=== PATIENT | male | born 1955 | race Caucasian/White ===

== ENCOUNTER 2017-01-20 09:46 | Day surgery (SDC) | payer OTHER ==
[~2017-01-20] VITALS: Ht 177.8 cm; Wt 95.3 kg
[~2017-01-20 09:46] MED LIST: BACTRIM,SEPT1 TABLET PO; KEFLEX500 MG PO; ULTRAM50 MG PO
[2017-01-20 10:21] VITALS: BP 97/63
[2017-01-20] MEDS ORDERED: NORCO 5/3251 TABLET PO (14:51)
[2017-01-20 15:12] VITALS: BP 120/80
[2017-01-20 16:00] VITALS: BP 106/65
[2017-01-20 16:54] VITALS: BP 115/60
[2017-01-20 18:05] VITALS: BP 112/63
[2017-01-20 21:30] VITALS: BP 110/66
== END 2017-01-20 21:38 | disposition home or self-care (01) ==
LOC: SDC 09:46 → 2SOUTH 14:10 → SDC 14:46 → 2SOUTH 21:38
DX: K80.10 Calculus of gallbladder with chronic cholecystitis without obstruction (principal); K66.0 Peritoneal adhesions (postprocedural) (postinfection); K21.9 Gastro-esophageal reflux disease without esophagitis; J44.9 Chronic obstructive pulmonary disease, unspecified; M19.90 Unspecified osteoarthritis, unspecified site; E66.9 Obesity, unspecified; Z68.30 Body mass index [BMI] 30.0-30.9, adult; F17.200 Nicotine dependence, unspecified, uncomplicated; Z80.0 Family history of malignant neoplasm of digestive organs; Z83.3 Family history of diabetes mellitus; Z88.5 Allergy status to narcotic agent
CPT/HCPCS: 74300; 88304; C1769; G0378; J1100; J1885; J2405; J3010; S0020

== ENCOUNTER → 2017-11-16 | Outpatient (CLI) | payer OTHER ==
[~2017-11-16] MED LIST changes: +CELEXA10 MG PO; +NORCO 5/3251 TABLET PO
== END | disposition home or self-care (01) ==
LOC: EDSTATUS 09:00 → OPR 09:00 → RAD 09:55 → OPR 09:55
PROC: 0JB83ZX Excision of Abdomen Subcutaneous Tissue and Fascia, Percutaneous Approach, Diagnostic (ICD-10-PCS; principal; 2017-11-16)
DX: E85.9 Amyloidosis, unspecified (principal)
CPT/HCPCS: 76942; 88305

== ENCOUNTER 2018-01-18 10:03 | Day surgery (SDC) | payer OTHER ==
[~2018-01-18] VITALS: Ht 177.8 cm; Wt 83.9 kg
[~2018-01-18 10:03] MED LIST changes: +ATIVAN0.5 MG PO; +CYCLOPHOSPHAMID50 M2 PO; +CYTOXAN PO; +DECADRON4 M1 PO; +DOXYCYCLINE HY100 MG PO; +ROXICODONE5 MG PO; +VITAMIN B-121000 MC3 PO; +VITAMIN B-121000 MC4 SL; +ZOVIRAX400 MG PO
[2018-01-18 10:37] LABS: INTER. NORMALIZED RATIO 0.9
[2018-01-18 10:50] VITALS: BP 98/56
[2018-01-18 11:07] LABS: PTT 18.2 SEC (25-37)
[2018-01-18 14:49] VITALS: BP 125/70
[2018-01-18 15:42] VITALS: BP 120/57
== END 2018-01-18 15:47 | disposition home or self-care (01) ==
LOC: SDC 10:03
PROVIDERS: Thoracic Surgery (Cardiothoracic Vascular Surgery)
DX: D76.3 Other histiocytosis syndromes (principal); E85.9 Amyloidosis, unspecified; K21.9 Gastro-esophageal reflux disease without esophagitis; Z87.891 Personal history of nicotine dependence; Z87.820 Personal history of traumatic brain injury
CPT/HCPCS: 85610; 85730; 88305; J0330; J0690; J1100; J2405; J2710; J3010; J7643

== ENCOUNTER 2018-04-15 03:57 | Emergency (ER) | payer OTHER ==
[~2018-04-15] VITALS: Ht 170.2 cm; Wt 83.6 kg
[~2018-04-15 03:57] MED LIST changes: +ZOMETA 4 M4 MG/100 M IV
[2018-04-15 04:44] LABS: BASOPHIL (%) 0.5 % (0-1); EOSINOPHIL (%) 0.8 % (0-5); EOSINOPHIL COUNT 0.1 K/uL (0-0.3); HEMATOCRIT 35.8 % (38.0-50.0); HEMOGLOBIN 11.8 G/DL (12.5-16.6); IMMATURE GRANULOCYTE (%) 0.4 % (0.0-0.7); LYMPHOCYTE (%) 13.3 % (15-42); LYMPHOCYTE COUNT 1.1 K/uL (1.0-2.8); MCH 30.9 PG (29.0-34.0); MCV 93.7 FL (86-99); MONOCYTE (%) 10.9 % (3-12); MONOCYTE COUNT 0.9 K/uL (0-0.8); NEUTROPHIL (%) 74.1 % (45-76); NEUTROPHIL COUNT 5.9 K/uL (1.8-6.4); PLATELET COUNT 181 K/uL (156-360); RBC DIS.WIDTH-CV 14.3 % (11.8-14.6); RBC DIS.WIDTH-SD 49.2 % (39-53); RED BLOOD COUNT 3.82 M/uL (4.00-5.50); WHITE BLOOD COUNT 7.9 K/uL (4.1-10.2)
[2018-04-15 04:57] LABS: CHLORIDE 102 mEq/L (99-109); POTASSIUM 4.4 mEq/L (3.7-5.4); SODIUM 138 mEq/L (136-147)
[2018-04-15 04:58] LABS: GLUCOSE 103 mg/dL (70-99)
[2018-04-15 05:02] LABS: CREATININE 0.7 mg/dL (0.6-1.3); GFR ESTIMATE (CALCULATED) > 59 mL/min/ (58.99-99999)
[2018-04-15 05:03] LABS: UREA NITROGEN (BUN) 19 mg/dL (9-23)
[2018-04-15 06:45] VITALS: BP 131/70
== END 2018-04-15 06:52 | disposition home or self-care (01) ==
LOC: EME 03:57
PROVIDERS: Emergency Medicine
DX: S63.287A Dislocation of proximal interphalangeal joint of left little finger, initial encounter (principal); S41.112A Laceration without foreign body of left upper arm, initial encounter; S51.012A Laceration without foreign body of left elbow, initial encounter; W01.198A Fall on same level from slipping, tripping and stumbling with subsequent striking against other object, initial encounter; J43.9 Emphysema, unspecified; F41.9 Anxiety disorder, unspecified; F32.9 Major depressive disorder, single episode, unspecified; F17.200 Nicotine dependence, unspecified, uncomplicated; Z87.19 Personal history of other diseases of the digestive system; Z92.21 Personal history of antineoplastic chemotherapy; Z90.49 Acquired absence of other specified parts of digestive tract; Z88.5 Allergy status to narcotic agent; Z88.6 Allergy status to analgesic agent
CPT/HCPCS: 73080; 73130; 80048; 85025; 99281; 99284